=== PATIENT | male | born 1985 | race Caucasian/White ===

== ENCOUNTER 2018-01-11 01:18 | Inpatient (IN) | payer OTHER ==
[~2018-01-11] VITALS: Ht 177.8 cm; Wt 89.1 kg
[~2018-01-11 01:18] MED LIST: BUPR8MIS PO
[2018-01-11] MEDS ORDERED: SODIUM CHLORIDE 0.9% 1000ML 2,000 ML IV STA (01:24)
[2018-01-11 01:45] LABS: BASO % 0.1 %; BASO ABS # 0.01 K/uL (0-0.2); EOS % 0.4 %; EOS ABS # 0.03 K/uL (0-0.5); HEMATOCRIT 40.7 % (42-52); HEMOGLOBIN 14.5 g/dL (14.0-18.0); IG# 0.03 K/uL (0.00-0.02); LYMPH % 27.2 %; LYMPH ABS # 1.98 K/uL (1.2-3.4); MEAN CELL VOLUME 80.1 fL (80-100); MEAN CORPUSCULAR HEMOGLOBIN 28.5 pg (25-34); MEAN CORPUSCULAR HGB CONC 35.6 g/dl (32-36); MEAN PLATELET VOLUME 8.9 fL (7.4-10.4); MONO % 5.1 %; MONO ABS # 0.37 K/uL (0.11-0.59); NEUT % 66.8 %; NEUT ABS # 4.86 K/uL (1.4-6.5); PLATELET COUNT 260 K/uL (130-400); RED CELL DISTRIBUTION WIDTH CV 12.9 % (11.5-14.5); RED CELL DISTRIBUTION WIDTH SD 37.2 fL (36.4-46.3); WHITE BLOOD COUNT 7.28 K/uL (4.8-10.8)
[2018-01-11] MEDS ORDERED: OPTIRAY 320 IV PRN (01:45)
[2018-01-11 01:47] LABS: ISTAT CREATININE 1.2 mg/dl (0.6-1.3); ISTAT IONIZED CALCIUM 1.14 mmol/l (1.12-1.32); ISTAT POTASSIUM 4.2 mEq/L (3.3-5.0)
[2018-01-11 01:54] LABS: PTT PATIENT 29.4 SECONDS (21.0-31.0)
[2018-01-11 02:03] LABS: ALBUMIN 3.7 gm/dl (3.4-5.0); ALT/SGPT 52 U/L (12-78); AST/SGOT 26 U/L (15-37); BLOOD UREA NITROGEN 12 mg/dl (7-18); CALCIUM 9.5 mg/dl (8.5-10.1); CARBON DIOXIDE 27 mmol/L (21-32); CREATININE 1.18 mg/dl (0.60-1.40); GLUCOSE 88 mg/dl (70-99); LIPASE 70 U/L (73-393); POTASSIUM 4.1 mmol/L (3.5-5.1); SODIUM 135 mmol/L (136-145)
[2018-01-11 02:05] LABS: ALKALINE PHOSPHATASE 63 U/L (45-117); CKMB 0.8 ng/ml (0.5-3.6); TOTAL PROTEIN 7.9 gm/dl (6.4-8.2)
[2018-01-11] MEDS ORDERED: SODIUM CHLORIDE 0.9% 1000ML 1,000 ML IV STA (03:52)
--- NOTE | 2018-01-11 04:27 | History and Physical ---
History & Physical Date & Time of Service: Jan 11, 2018 at 04:27 Chief Complaint: Overdose Primary Care Physician: [facility] History of Present Illness Source: patient This is a 32 yo m that is presenting to us under incarceration as he was at home earlier today when his house was searched and in the mean time he had swallowed approx 25 small bags of opiate like substances/ cocaine. He was brought [facility] the [place] [facility] where he freely admitted to doing this and he was brought here for evaluation. No foreign objects noted on the xray however positive urine and after discussing with poison control is was recommended that the patient be observed for a 24 hour period. On exam the patient is sleepy however arousable as he had been up all night. He denies any chest pain/ palpitations or shortness of breath however due to his arousability only a limited ROS was completed. He denies any health history or surgical history. Admits to illicit drug use with heroin and cocaine. Past Medical/Surgical History Drug abuse Family History Heart disease Social History Smoking Status: Current Some Day Smoker Smokeless Tobacco Use: No Alcohol Use: socially Drug Use: cocaine, heroin Marital Status: single Occupational Status: employed Allergies Uncoded Allergies: PENICILLIN (Allergy, Unknown, UNKNOWN- CHILDHOOD, 01/11/18) Home Medications No Active Prescriptions or Reported Meds Review of Systems As above limited ROS Respiratory: No shortness of breath Cardiovascular: No chest pain, No palpitations Physical Exam Vital Signs Date Time Temp Pulse Resp B/P (MAP) Pulse Ox O2 Delivery O2 Flow Rate FiO2 01/11/18 03:01 93 18 127/91 97 01/11/18 02:31 01/11/18 02:30 97 19 140/80 99 01/11/18 02:01 80 20 141/85 98 Room Air 01/11/18 01:33 99 01/11/18 01:25 36.7 100 22 132/94 98 Room Air 01/11/18 01:20 98 Room Air 01/11/18 01:20 98 Room Air General Appearance: no apparent distress Head: normocephalic, atraumatic Eyes: normal inspection ENT: normal ENT inspection Neck: supple Respiratory/Chest: normal breath sounds, no respiratory distress, no accessory muscle use Cardiovascular: regular rate, rhythm, no murmur, normal peripheral pulses Abdomen/GI: normal bowel sounds, non tender, soft Back: normal inspection, no CVA tenderness Extremities/Musculoskelatal: no calf tenderness Neurologic/Psych: normal mood/affect, oriented x 3 Skin: normal color, warm/dry, no rash Lymphatic: no adenopathy Diagnostics Laboratory Results Results Past 24 Hours Test 01/11/18 01:31 01/11/18 01:34 01/11/18 01:35 01/11/18 02:16 Range/Units White Blood Count 7.28 4.8-10.8 K/uL Red Blood Count 5.08 4.7-6.1 M/uL Hemoglobin 14.5 14.0-18.0 g/dL Hematocrit 40.7 42-52 % Mean Corpuscular Volume 80.1 80-100 fL Mean Corpuscular Hemoglobin 28.5 25-34 pg Mean Corpuscular Hemoglobin Concent 35.6 32-36 g/dl Platelet Count 260 130-400 K/uL Mean Platelet Volume 8.9 7.4-10.4 fL Neutrophils (%) (Auto) 66.8 % Lymphocytes (%) (Auto) 27.2 % Monocytes (%) (Auto) 5.1 % Eosinophils (%) (Auto) 0.4 % Basophils (%) (Auto) 0.1 % Neutrophils # (Auto) 4.86 1.4-6.5 K/uL Lymphocytes # (Auto) 1.98 1.2-3.4 K/uL Monocytes # (Auto) 0.37 0.11-0.59 K/uL Eosinophils # (Auto) 0.03 0-0.5 K/uL Basophils # (Auto) 0.01 0-0.2 K/uL RDW Standard Deviation 37.2 36.4-46.3 fL RDW Coefficient of Variation 12.9 11.5-14.5 % Immature Granulocyte % (Auto) 0.4 % Immature Granulocyte # (Auto) 0.03 0.00-0.02 K/uL Prothrombin Time 10.8 9.0-12.0 SECONDS Prothromb Time International Ratio 1.0 0.9-1.1 Activated Partial Thromboplast Time 29.4 21.0-31.0 SECONDS Partial Thromboplastin Ratio 1.1 Sodium Level 135 136-145 mmol/L Potassium Level 4.1 3.5-5.1 mmol/L Chloride Level 102 98-107 mmol/L Carbon Dioxide Level 27 21-32 mmol/L Anion Gap 6.0 17.0 16-25 mmol/L Blood Urea Nitrogen 12 7-18 mg/dl Creatinine 1.18 0.60-1.40 mg/dl Est Creatinine Clear Calc Drug Dose 93.7 ml/min Estimated GFR () 94.7 Estimated GFR (Non- 81.7 BUN/Creatinine Ratio 9.8 10-20 Random Glucose 88 70-99 mg/dl Osmolality 286 280-300 mOsm/kg Calcium Level 9.5 8.5-10.1 mg/dl Magnesium Level 2.0 1.8-2.4 mg/dl Total Bilirubin 0.5 0.2-1 mg/dl Direct Bilirubin 0.2 0-0.2 mg/dl Aspartate Amino Transf (AST/SGOT) 26 15-37 U/L Alanine Aminotransferase (ALT/SGPT) 52 12-78 U/L Alkaline Phosphatase 63 45-117 U/L Total Creatine Kinase 70 39-308 U/L Creatine Kinase MB 0.8 0.5-3.6 ng/ml Creatine Kinase MB Ratio 1.1 0-3.0 Troponin I < 0.015 0-0.045 ng/ml Total Protein 7.9 6.4-8.2 gm/dl Albumin 3.7 3.4-5.0 gm/dl Lipase 70 73-393 U/L Salicylates Level < 1.7 2.8-20 mg/dl Acetaminophen Level < 2 10-30 ug/ml Bedside Troponin I < 0.030 0-0.045 ng/ml Bedside Hemoglobin 13.9 14.0-18.0 g/dl Bedside Hematocrit 41 42-52 % Bedside Sodium 138 135-144 mEq/L Bedside Potassium 4.2 3.3-5.0 mEq/L Bedside Chloride 100 101-112 mEq/L Bedside Total CO2 26 24-31 mEq/l Bedside Blood Urea Nitrogen 12 7-18 mg/dl Bedside Creatinine 1.2 0.6-1.3 mg/dl Bedside Glucose (other) 92 70-99 mg/dl Bedside Ionized Calcium (Amira) 1.14 1.12-1.32 mmol/l Ethyl Alcohol mg/dL < 3.0 0-3 mg/dl Test 01/11/18 02:24 01/11/18 03:07 Range/Units Bedside Lactic Acid Venous 1.01 0.90-1.70 mmol/L Urine Opiates Screen POS NEG Urine Methadone, Qualitative NEG NEG Urine Barbiturates NEG NEG Urine Phencyclidine (PCP) Level NEG NEG Ur Amphetamine/Methamphetamine POS NEG MDMA (Ecstasy) Screen NEG NEG Urine Benzodiazepines Screen NEG NEG Urine Cocaine Metabolite POS NEG Urine Marijuana (THC) NEG NEG Diagnostic Radiology CXR- no acute findigns CT abd- per radiologist; patchy basilar opacity mostly in right lung, moderate stool EKG NSR, HR 91, no ischemic changes Impression Assessment and Plan This is a 32 yo m that is presenting to us with unintentional overdose of multiple illicit substances requiring observation intentional overdose without SI of multiple illicit substances - Tele admission - EKG in am - monitor for S&S of cocaine/ opiate overdose DVT prophylaxis heparin bid FULL CODE Resident Physician Supervision Note: I was present with Dr. Parry during the history and exam. I discussed the case with the resident and agree with the findings and plan as documented in the note. Any exceptions or clarifications are listed here: 32 y/o M Hx polysubstance abuse. Swallowed several bags filled with a variey of synthetic opiates and cocaine while his house was being searched by police. He was brought to the hospital therefore. He is hemodynamically stable, however , poison control have advised on 24 hours of monitoring before he proceeds to the local assisted. OE AAO x 3 S1,2 R CTAB NT, ND No CCE P: IVF and observation prior to discharge - recommended 24 hours of monitoring on telemetry Documented By: German Parker Resuscitation Status full VTE Prophylaxis Will order VTE Prophylaxis: Yes Note Total Time: Critical Care 30 - 74 minutes
[2018-01-11] MEDS ORDERED: ALUMINUM/MAGNESIUM/SIMETH (MAALOX MAX) 30 ML UDC PO PRN (04:30)
[2018-01-11] MEDS ORDERED: MAGNESIUM HYDROXIDE SUSP 30 ML UDC PO PRN (04:30)
[2018-01-11] MEDS ORDERED: ONDANSETRON INJ 2 MG/ML 2 ML VIAL IV PRN (04:30)
--- NOTE | 2018-01-11 04:53 | EMERGENCY ROOM VISIT NOTE ---
History First contact with patient: 01:23 Chief Complaint: OVERDOSE (INTENTIONAL) Stated Complaint: OVERDOSE History of Present Illness The patient is a 32 year old male who presents to the Emergency Room with complaints of swelling 25 bags of opiate like substance and cocaine at noon today when the house that he was at was being raided by the police. He was then arrested and while being processed he informed the correction officers that he had swallowed possibly 25 bags of opiate like and cocaine like substance at noon today. Patient states he did this as he did not want to get charged with illegal substance. Patient states he occasionally does opiate like drugs called MD 24. He states this is similar to fentanyl. He buys this off the street. He occasionally does cocaine. Patient denies IV drug abuse, heroin abuse, recent alcohol intake. Patient complains of abdominal cramping ranging in severity currently 5 out of 10 throughout his abdomen. Nothing makes it better or worse. Patient states he feels anxious. Patient denies chest pain, dyspnea, racing heart, diaphoresis, fever, chills, nausea, vomiting , diarrhea, back pain, urinary symptoms. Patient denies suicidal or homicidal ideations. Review of Systems An 10 system review of systems was completed with positives and pertinent negatives listed in the HPI. Past Medical/Surgical History Medical Problems: (1) Intentional non-suicidal overdose involving multiple drugs Drug abuse Family History Heart disease Social History Smoking Status: Current Some Day Smoker Alcohol Use: occasionally Drug Use: cocaine Marital Status: single Housing Status: lives with significant other Current/Historical Medications No Active Prescriptions or Reported Meds Physical Exam Vital Signs Date Time Temp Pulse Resp B/P (MAP) Pulse Ox O2 Delivery O2 Flow Rate FiO2 01/11/18 03:01 93 18 127/91 97 01/11/18 02:31 01/11/18 02:30 97 19 140/80 99 01/11/18 02:01 80 20 141/85 98 Room Air 01/11/18 01:33 99 01/11/18 01:25 36.7 100 22 132/94 98 Room Air 01/11/18 01:20 98 Room Air 01/11/18 01:20 98 Room Air Physical Exam VITALS: Vitals are noted on the nurse's note and reviewed by myself. Vital signs mildly tachycardic. GENERAL: Anxious appearing male in shackles, in no acute distress, nondiaphoretic, well-developed well-nourished. SKIN: The skin was without rashes, erythema, edema, or bruising. There is no tenting of the skin. Capillary reflex less than 2 seconds. HEAD: Normocephalic atraumatic. EARS: External auditory canals clear, tympanic membranes pearly walton without erythema or effusion bilaterally. EYES: Pupils equal round and reactive to light and accommodation. Conjunctivae without injection, sclerae without icterus. Extraocular movements intact. NOSE: Patent, turbinates without inflammation or discharge. No sinus tenderness. MOUTH: Mucous membranes moist. Pharynx without erythema or exudate. Uvula midline. Airway patent. Tongue does not deviate. NECK: Supple without nuchal rigidity. No lymphadenopathy. No thyromegaly. Cervical spine is nontender. No JVD. HEART: Regular rate and rhythm without murmurs gallops or rubs. LUNGS: Clear to auscultation bilaterally without wheezes, rales or rhonchi. No retractions or accessory muscle use. ABDOMEN: Positive bowel sounds x 4. Normal tympanic percussion. Soft, nontender, without masses or organomegaly. Zepeda sign negative. No guarding or rebound tenderness. No CVA tenderness MUSCULOSKELETAL: No muscle atrophy, erythema, or edema noted. NEURO: Patient was alert and oriented to person place and time. Normal sensation to light and sharp touch. No focal neurological deficits. Medical Decision & Procedures Laboratory Results 01/11/18 01:31 Red Blood Count 5.08, Mean Corpuscular Volume 80.1, Mean Corpuscular Hemoglobin 28.5, Mean Corpuscular Hemoglobin Concent 35.6, Mean Platelet Volume 8.9, Neutrophils (%) (Auto) 66.8, Lymphocytes (%) (Auto) 27.2, Monocytes (%) (Auto) 5.1, Eosinophils (%) (Auto) 0.4, Basophils (%) (Auto) 0.1, Neutrophils # (Auto) 4.86, Lymphocytes # (Auto) 1.98, Monocytes # (Auto) 0.37, Eosinophils # (Auto) 0.03, Basophils # (Auto) 0.01 01/11/18 01:31 Test 01/11/18 01:31 01/11/18 01:34 01/11/18 01:35 01/11/18 02:16 White Blood Count 7.28 K/uL (4.8-10.8) Red Blood Count 5.08 M/uL (4.7-6.1) Hemoglobin 14.5 g/dL (14.0-18.0) Hematocrit 40.7 % (42-52) Mean Corpuscular Volume 80.1 fL (80-100) Mean Corpuscular Hemoglobin 28.5 pg (25-34) Mean Corpuscular Hemoglobin Concent 35.6 g/dl (32-36) Platelet Count 260 K/uL (130-400) Mean Platelet Volume 8.9 fL (7.4-10.4) Neutrophils (%) (Auto) 66.8 % Lymphocytes (%) (Auto) 27.2 % Monocytes (%) (Auto) 5.1 % Eosinophils (%) (Auto) 0.4 % Basophils (%) (Auto) 0.1 % Neutrophils # (Auto) 4.86 K/uL (1.4-6.5) Lymphocytes # (Auto) 1.98 K/uL (1.2-3.4) Monocytes # (Auto) 0.37 K/uL (0.11-0.59) Eosinophils # (Auto) 0.03 K/uL (0-0.5) Basophils # (Auto) 0.01 K/uL (0-0.2) RDW Standard Deviation 37.2 fL (36.4-46.3) RDW Coefficient of Variation 12.9 % (11.5-14.5) Immature Granulocyte % (Auto) 0.4 % Immature Granulocyte # (Auto) 0.03 K/uL (0.00-0.02) Prothrombin Time 10.8 SECONDS (9.0-12.0) Prothromb Time International Ratio 1.0 (0.9-1.1) Activated Partial Thromboplast Time 29.4 SECONDS (21.0-31.0) Partial Thromboplastin Ratio 1.1 Est Creatinine Clear Calc Drug Dose 93.7 ml/min Estimated GFR () 94.7 Estimated GFR (Non- 81.7 BUN/Creatinine Ratio 9.8 (10-20) Osmolality 286 mOsm/kg (280-300) Calcium Level 9.5 mg/dl (8.5-10.1) Magnesium Level 2.0 mg/dl (1.8-2.4) Total Bilirubin 0.5 mg/dl (0.2-1) Direct Bilirubin 0.2 mg/dl (0-0.2) Aspartate Amino Transf (AST/SGOT) 26 U/L (15-37) Alanine Aminotransferase (ALT/SGPT) 52 U/L (12-78) Alkaline Phosphatase 63 U/L (45-117) Total Creatine Kinase 70 U/L (39-308) Creatine Kinase MB 0.8 ng/ml (0.5-3.6) Creatine Kinase MB Ratio 1.1 (0-3.0) Troponin I < 0.015 ng/ml (0-0.045) Total Protein 7.9 gm/dl (6.4-8.2) Albumin 3.7 gm/dl (3.4-5.0) Lipase 70 U/L (73-393) Salicylates Level < 1.7 mg/dl (2.8-20) Acetaminophen Level < 2 ug/ml (10-30) Bedside Troponin I < 0.030 ng/ml (0-0.045) Bedside Hemoglobin 13.9 g/dl (14.0-18.0) Bedside Hematocrit 41 % (42-52) Bedside Sodium 138 mEq/L (135-144) Bedside Potassium 4.2 mEq/L (3.3-5.0) Bedside Chloride 100 mEq/L (101-112) Bedside Total CO2 26 mEq/l (24-31) Anion Gap 17.0 mmol/L (16-25) Bedside Blood Urea Nitrogen 12 mg/dl (7-18) Bedside Creatinine 1.2 mg/dl (0.6-1.3) Bedside Glucose (other) 92 mg/dl (70-99) Bedside Ionized Calcium (Amira) 1.14 mmol/l (1.12-1.32) Ethyl Alcohol mg/dL < 3.0 mg/dl (0-3) Test 01/11/18 02:24 01/11/18 03:07 Bedside Lactic Acid Venous 1.01 mmol/L (0.90-1.70) Urine Opiates Screen POS (NEG) Urine Methadone, Qualitative NEG (NEG) Urine Barbiturates NEG (NEG) Urine Phencyclidine (PCP) Level NEG (NEG) Ur Amphetamine/Methamphetamine POS (NEG) MDMA (Ecstasy) Screen NEG (NEG) Urine Benzodiazepines Screen NEG (NEG) Urine Cocaine Metabolite POS (NEG) Urine Marijuana (THC) NEG (NEG) Medications Administered Medications (Trade) Dose Ordered Sig/Tanika Route Start Time Stop Time Status Last Admin Dose Admin Sodium Chloride 2,000 ml @ 999 mls/hr Q2H1M STAT IV 01/11/18 01:24 01/11/18 03:24 DC 01/11/18 01:30 999 MLS/HR ED Course Prior records/ancillary studies reviewed. Triage Nursing notes reviewed. Additional history obtained from correction officers The patient's history was concerning for altered mental status and probable overdose. Differential diagnosis: Etiologies such as toxicologic, infection, hypoglycemia, electrolyte abnormalities, cardiac sources, intracerebral event, neurologic, as well as others were entertained. Physical examination: The patient had a normal sensorium. No trauma noted. ER treatment provided: IV NSS 2 L bolus On reassessment the patient was stable and improving. Diagnostic interpretation by me: The electrocardiogram was negative for pathologic change. There was no QRS widening or interval prolongation. Normal sinus, normal intervals, no acute ST- T wave changes, rate 91. Impression normal sinus rhythm interpreted by myself The labs revealed neg Tylenol, salicylate and alcohol levels Creatinine 1.2 and patient was sent emergently down to CAT scan Negative lactic acid. Positive UDS for cocaine, opiates and amphetamines Imaging studies: CT ABDOMEN & PELVIS: Patchy basilar densities most prominent in the right middle lobe. Correlate clinically for inflammatory/infectious process. Stool-filled colon. Normal caliber appendix. No evidence of bowel obstruction. Small fat-containing umbilical hernia. Mild splenomegaly. Radiologist: Angelika Tierney M.D. Chest x-ray with no acute consolidation, pneumothorax or free of my interpretation I spoke to the correction officers who state there is only a nurse at the long term. They state they know the patient as he is a frequent visitor to them. Consultation: A consultation was placed with Poison Control. The recommendations were for observation for 24 hours. A consultation was placed with Dr Parker, hospitalist. The case was discussed and diagnostics were reviewed. The patient was evaluated in the ER for further treatment. This appears to be consistent with an isolated overdose. Patient had no signs or symptoms of pneumonia. I believe this must be an inflammatory process on the CT that was read by radiology. CT was negative for obvious foreign body ingestion. Patient's vital signs remained stable. It is now 15 hours since the possible ingestion of the illegal drugs. The recommendation is to observe him for 24 hours. Medicine was consulted. By the evaluation outlined above emergent etiologies such as infection, hypoglycemia, electrolyte abnormalities, cardiac sources, intracerebral event, neurologic,as well as others were deemed relatively unlikely. The pt informed about the findings as listed above. All questions were answered and pleased with the treatment. Case reviewed with my attending The chart was completed utilizing [employer] Speech voice recognition software. Grammatical errors, random word insertions, pronoun errors, and incomplete sentences are an occassional consequence of this system due to software limitations, ambient noise, and hardware issues. Any formal questions or concerns about the content, text, or information contained within the body of this dictation should be directly addressed to the physician social human services assistants for clarification. Medical Decision As above Medication Reconcilliation Current Medication List: was personally reviewed by me Blood Pressure Screening Patient's blood pressure: Normal blood pressure Impression Primary Impression: Purposeful non-suicidal drug ingestion Departure Information Dispostion Being Evaluated By Hospitalist Condition FAIR Prescriptions No Active Prescriptions or Reported Meds Referrals No Doctor, Assigned (PCP) Patient Instructions My [facility] Problem Qualifiers Primary Impression: Purposeful non-suicidal drug ingestion Encounter type: initial encounter Qualified Codes: T50.902A - Poisoning by unspecified drugs, medicaments and biological substances, intentional self-harm , initial encounter
[2018-01-11] MEDS ORDERED: IV FLUIDS COMPLETED PRN (05:15)
[2018-01-11 05:30] VITALS: BP 135/78; PULSE 97; TEMP 36.8; O2SAT 98; Ht 177.8 cm; Wt 89.1 kg
--- NOTE | 2018-01-11 06:44 | DIAGNOSTIC IMAGING REPORT ---
CHEST ONE VIEW PORTABLE CLINICAL HISTORY: 32 years-old Male presenting with overdose. TECHNIQUE: Portable upright AP view of the chest was obtained. COMPARISON: None. FINDINGS: Cardiomediastinal silhouette normal. Lungs and pleural spaces clear. Osseous structures normal. Upper abdomen normal. IMPRESSION: 1. No acute cardiopulmonary disease. Electronically signed by: Kaushik Steven M.D. 01/11/2018 6:43 AM Dictated Date/Time: 01/11/2018 6:42 AM
--- NOTE | 2018-01-11 06:54 | DIAGNOSTIC IMAGING REPORT ---
ABD/PELVIS IV CONTRAST ONLY CLINICAL HISTORY: 32 years-old Male presenting with swallowed 25 bags of opiates?. TECHNIQUE: Multidetector CT of the abdomen and pelvis was performed after the administration of intravenous contrast. IV contrast: 94 mL of Optiray 320. A dose lowering technique was used consistent with the principles of ALARA (as low as reasonably achievable). COMPARISON: None. CT DOSE (mGy.cm): The estimated cumulative dose is 697.53 mGy.cm. FINDINGS: Image quality is degraded by positioning of the arms at the sides. Pharmacy Informaticist topogram: Unremarkable. Lung bases: Focal nodular opacities in the medial segments of the right middle lobe. Minimal dependent atelectasis. No gross evidence of bronchiectasis, although evaluation is limited to the lung bases. Normal heart size. No pericardial or pleural effusion. Liver: Normal morphology. No liver lesion. Patent hepatic vasculature. Biliary: No intrahepatic or extrahepatic biliary ductal dilatation. Normal gallbladder. Pancreas: Normal. Spleen: Normal. Adrenal glands: Normal. Kidneys and ureters: Normal. No hydronephrosis. Bladder: Normal. Pelvic organs: Prostate and seminal vesicles normal. Bowel: Normal appendix. No bowel obstruction. Peritoneal cavity: No free fluid or intraperitoneal gas. Lymph nodes: No enlarged lymph nodes in the abdomen or pelvis. Vasculature: Aorta and IVC patent and normal in caliber. Abdominal wall: Normal. Musculoskeletal: Normal. IMPRESSION: 1. No acute intra-abdominal pathology. 2. Nodular opacities in the right middle lobe are most concerning for an infectious etiology, atypical infections not excluded including mycobacterium avium complex. Further evaluation with chest CT to be considered for more complete characterization. The report will be called/faxed according to standard departmental protocol. Electronically signed by: Kaushik Steven M.D. 01/11/2018 6:53 AM Dictated Date/Time: 01/11/2018 6:47 AM
[2018-01-11 07:35] VITALS: BP 133/79; PULSE 82; TEMP 36.7; O2SAT 97
[2018-01-11] MEDS: POLYETHYLENE (MIRALAX) 17 GM PACK PO SCH (11:52)
[2018-01-11] MEDS: HEPARIN SOD 5000 UNIT/0.5 ML CARP SQ SCH ×2 (11:57→20:54)
[2018-01-11 11:59] VITALS: BP 133/82; PULSE 84; TEMP 36.8; O2SAT 99
[2018-01-11 15:55] VITALS: BP 125/82; PULSE 78; TEMP 37.2; O2SAT 94
[2018-01-11 20:20] VITALS: BP 121/80; PULSE 79; TEMP 37.4; O2SAT 98
[2018-01-11] MEDS ORDERED: NICOTINE 21 MG/24 HR TDSY TD ONE (22:00)
[2018-01-11] MEDS ORDERED: AZITHROMYCIN IV 500 MG in DEXTROSE 5% 250ML 250 ML IV ONE (22:00)
[2018-01-12 00:10] VITALS: BP 124/79; PULSE 86; TEMP 36.9; O2SAT 95
[2018-01-12 04:18] VITALS: BP 118/73; PULSE 84; TEMP 36.8
[2018-01-12] MEDS: POLYETHYLENE (MIRALAX) 17 GM PACK PO SCH (07:58)
[2018-01-12 08:00] VITALS: BP 120/72; PULSE 94; TEMP 36.4
[2018-01-12] MEDS: NICOTINE 21 MG/24 HR TDSY TD SCH (08:00)
[2018-01-12] MEDS: HEPARIN SOD 5000 UNIT/0.5 ML CARP SQ SCH ×2 (08:02→22:24)
--- NOTE | 2018-01-12 09:28 | DIAGNOSTIC IMAGING REPORT ---
CT SCAN OF THE CHEST WITHOUT IV CONTRAST CLINICAL HISTORY: Follow-up right middle lobe consolidation. COMPARISON STUDY: Abdominal CT dated 01/11/2018. Chest x-ray dated 01/11/2018. TECHNIQUE: CT scan of the thorax was performed from the thoracic inlet to the upper abdomen. Images are reviewed in the axial, sagittal, and coronal planes. IV contrast was not administered for this examination as per the referring clinician. A dose lowering technique was utilized adhering to the principles of ALARA. CT DOSE: 338.09 mGy.cm FINDINGS: Thyroid: Imaged portions of the thyroid gland are normal in size and attenuation. Thoracic aorta: The thoracic aorta is normal in caliber and demonstrates standard 3-vessel arch anatomy. Heart: The heart is normal in size and without pericardial effusion. Lungs and pleural spaces: There is patchy airspace consolidation with foci of tree-in-bud nodularity identified in the right middle lobe. The lungs are otherwise clear. No pleural effusion or pneumothorax is seen. Layering secretions are noted in the trachea. Mediastinum: There is no mediastinal lymphadenopathy. Cindy: Not well assessed without IV contrast. Axillae: There is no axillary lymphadenopathy. Upper abdomen: There is a tiny hiatal hernia. The spleen is mildly enlarged measuring 13.8 cm in length. Partially visualized upper abdominal viscera is otherwise within normal limits. Skeletal structures: No lytic or blastic bony lesions are seen. IMPRESSION: 1. Patchy airspace consolidation with foci of tree-in-bud nodularity are again seen in the right middle lobe and unchanged from yesterday. This likely represents an infectious/inflammatory pneumonitis. Clinical correlation will be required. 2. The lungs are otherwise clear. No pleural effusion is seen. 3. There is no mediastinal lymphadenopathy. 4. Mild splenomegaly. Electronically signed by: Marcos Marte M.D. 01/12/2018 9:27 AM Dictated Date/Time: 01/12/2018 9:23 AM
--- NOTE | 2018-01-12 12:01 | Progress Note ---
Subjective Date of Service: Jan 12, 2018. Subjective Pt evaluation today including: conversation w/ patient Patient states that he feels very weak. He has constant chest pain and is feels pressure like in nature. This is accompanied by photophobia. Patient states that he has headaches which are migraines. They occur once a week. But he is having them now. He states that he cannot eat right now and that he is extremely weak. As per nurse, he has not taken his miralax and had not coughed the night before. Problem List Medical Problems: (1) Purposeful non-suicidal drug ingestion Status: Acute Review of Systems Constitutional: No fever, No chills Eyes: No worsening of vision ENT: No hearing loss Respiratory: No cough, No sputum Cardiac: + chest pain, No orthopnea Male : No dysuria Neurologic: No memory loss Psychiatric: No depression symptoms Heme: No abnormal bleeding/bruising Endo: + fatigue Skin: No rash All Other Systems: Reviewed and Negative Medications Current Inpatient Medications Medications (Trade) Dose Ordered Sig/Tanika Route Start Time Stop Time Status Last Admin Dose Admin Ioversol (Optiray 320) 125 ml UD PRN IV 01/11/18 01:45 01/15/18 01:44 Heparin Sodium (Porcine) (Heparin Sq 5000 Unit/0.5ml) 5,000 unit Q12 SQ 01/11/18 09:00 02/10/18 08:59 01/12/18 08:02 5,000 UNIT Acetaminophen (Tylenol Tab) 650 mg Q4H PRN PO 01/11/18 04:30 02/10/18 04:29 Al Hydrox/Mg Hydrox/Simethicone (Maalox Max Susp) 15 ml Q4H PRN PO 01/11/18 04:30 02/10/18 04:29 Magnesium Hydroxide (Milk Of Magnesia Susp) 30 ml Q12H PRN PO 01/11/18 04:30 02/10/18 04:29 Ondansetron HCl (Zofran Inj) 4 mg Q6H PRN IV 01/11/18 04:30 02/10/18 04:29 Polyethylene (Miralax Powder Packet) 17 gm DAILY PO 01/11/18 09:00 02/10/18 08:59 01/12/18 07:58 17 GM Miscellaneous (Iv Fluids Completed) 1 ea PRN PRN N/A 01/11/18 05:15 01/11/19 05:14 Nicotine (Nicoderm Cq 21MG Patch) 1 patch QAM TD 01/12/18 09:00 02/11/18 08:59 01/12/18 08:00 1 PATCH Miscellaneous (Remove Nicoderm Patch) 1 ea HS N/A 01/12/18 21:00 02/11/18 20:59 01/12/18 22:21 1 EA Objective Vital Signs Date Time Temp Pulse Resp B/P (MAP) Pulse Ox O2 Delivery O2 Flow Rate FiO2 01/12/18 08:00 36.4 94 16 120/72 (88) 01/12/18 08:00 Room Air 01/12/18 04:18 36.8 84 16 118/73 (88) 01/12/18 04:00 Room Air 01/12/18 00:10 36.9 86 20 124/79 (94) 95 Room Air 01/12/18 00:00 Room Air 01/11/18 20:20 37.4 79 18 121/80 (94) 98 Room Air 01/11/18 20:00 Room Air 01/11/18 16:00 Room Air 01/11/18 15:55 37.2 78 16 125/82 (96) 94 Room Air 01/11/18 12:00 Room Air 01/11/18 11:59 36.8 84 20 133/82 (99) 99 Room Air Physical Exam General Appearance: WD/WN, no apparent distress Eyes: normal inspection ENT: normal ENT inspection Neck: supple, no adenopathy Respiratory/Chest: chest non-tender, lungs clear, normal breath sounds Cardiovascular: regular rate, rhythm Abdomen: normal bowel sounds, non tender, soft Extremities: normal range of motion Neurologic/Psychiatric: alert, oriented x 3 Skin: normal color Lymphatic: no adenopathy Assessment and Plan This is a 32 yo m that is presenting to us with unintentional overdose of multiple illicit substances requiring observation intentional overdose without SI of multiple illicit substances - Tele admission - EKG in am - monitor for S&S of cocaine/ opiate overdose Tree in [place]d [place] in [place] will obtain AFB x3. Patient however received azithromycin by night resident. May alter results of culture. may consider pulmonary consult tomorrow for bronch. Malingering Patient is likely looking to avoid fdc time by extending his hospital stay. Trop and EKG negative. Obtained patient to take his miralax and give a sputum sample. Patient states he is weak, but appears to be a strong well nourished male will monitor DVT prophylaxis heparin bid FULL CODE Will downgrade to Med surg
[2018-01-12 12:05] VITALS: BP 123/77; PULSE 96; TEMP 37.3; O2SAT 100
[2018-01-12 15:56] VITALS: BP 113/78; PULSE 85; TEMP 37.2; O2SAT 99
[2018-01-12 17:02] VITALS: BP 113/78; PULSE 85; TEMP 37.2; O2SAT 99
[2018-01-13 00:33] VITALS: BP 127/80; PULSE 78; TEMP 36.8; O2SAT 100
[2018-01-13 07:38] VITALS: BP 132/80; PULSE 76; TEMP 36.3; O2SAT 99
[2018-01-13 08:00] VITALS: O2SAT 100
[2018-01-13] MEDS: POLYETHYLENE (MIRALAX) 17 GM PACK PO SCH (08:00)
--- NOTE | 2018-01-13 09:24 | Progress Note ---
Subjective Date of Service: Jan 13, 2018. Subjective Pt evaluation today including: conversation w/ patient Pt states he feels hungry at times, but starts to eat and his appetite is gone. Nursing reports he is eating 1/2 of his tray. Requesting protein supplements. No further chest pain. States he has had several bowel movements and passed the ingested substances. Also tells me that the drugs he swallowed were in sheepskin baggies that are to dissolve in 30 hours. Denies other drug use other than what he ingested to hide from police search. States he was in [facility] [place] 3 months ago and some time in [place] Sep/Oct. Had HIV testing 11/2016 that was neg. Two partners since that time, one of which is he current girlfriend. He did have unprotected intercourse with her and she is currently . Pt denies fever, SOB, abd pain, n/v/c/d, LE pain or swelling. Problem List Medical Problems: (1) Purposeful non-suicidal drug ingestion Status: Acute Review of Systems All Other Systems: Reviewed and Negative Objective Vital Signs Date Time Temp Pulse Resp B/P (MAP) Pulse Ox O2 Delivery O2 Flow Rate FiO2 01/13/18 07:38 36.3 76 20 132/80 (97) 99 Room Air 01/13/18 00:33 36.8 78 18 127/80 (96) 100 Room Air 01/13/18 00:00 Room Air 01/12/18 20:00 Room Air 01/12/18 17:02 37.2 85 18 99 01/12/18 16:00 Room Air 01/12/18 15:56 37.2 85 18 113/78 (90) 99 Room Air 01/12/18 12:05 37.3 96 20 123/77 (92) 100 Room Air 01/12/18 12:00 Room Air Physical Exam General Appearance: WD/WN, no apparent distress Eyes: normal inspection, sclerae normal Respiratory/Chest: normal breath sounds, no respiratory distress Cardiovascular: regular rate, rhythm, no edema Abdomen: non tender, soft Extremities: non-tender, no pedal edema Neurologic/Psychiatric: alert, normal mood/affect Skin: normal color, warm/dry Laboratory Results Last 24 Hours Test 01/12/18 12:53 Troponin I < 0.015 ng/ml Assessment and Plan This is a 32 yo m that is presenting to us with intentional overdose of multiple illicit substances requiring observation intentional overdose without SI of multiple illicit substances - Tele admission was neg and stable for transfer to medical floor Was having chest pain, but now resolved with VSS Trop neg x3 Tree in [place]d consolidation in [place] will obtain AFB x3. Patient however received azithromycin by night resident. May alter results of culture. may consider pulmonary consult for bronch Malingering Patient is likely looking to avoid care home time by extending his hospital stay. Trop and EKG negative. Obtained patient to take his miralax and give a sputum sample. Patient states he is weak, but appears to be a strong well nourished male will monitor DVT prophylaxis heparin bid FULL CODE
[2018-01-13] MEDS: NICOTINE 21 MG/24 HR TDSY TD SCH (10:10)
[2018-01-13] MEDS: HEPARIN SOD 5000 UNIT/0.5 ML CARP SQ SCH ×2 (10:11→23:52)
[2018-01-13 10:17] VITALS: BP 99/66; PULSE 86; TEMP 36.7; O2SAT 100
[2018-01-13 16:00] VITALS: O2SAT 100
[2018-01-13 22:55] VITALS: BP 117/75; PULSE 98; TEMP 36.7; O2SAT 98
[2018-01-13] MEDS: BOOST VANILLA PO SCH (23:58)
[2018-01-14 07:23] VITALS: BP 128/82; PULSE 87; TEMP 36.7; O2SAT 100
[2018-01-14] MEDS: HEPARIN SOD 5000 UNIT/0.5 ML CARP SQ SCH ×2 (10:00→21:00)
[2018-01-14] MEDS: POLYETHYLENE (MIRALAX) 17 GM PACK PO SCH (10:00)
[2018-01-14] MEDS: NICOTINE 21 MG/24 HR TDSY TD SCH (10:01)
[2018-01-14] MEDS: BOOST VANILLA PO SCH ×3 (10:07→19:50)
[2018-01-14] MEDS: ACETAMINOPHEN 325 MG TAB PO PRN ×2 (12:55→16:57)
[2018-01-14 14:59] VITALS: BP 113/69; PULSE 87; TEMP 36.8; O2SAT 100
[2018-01-14 16:00] VITALS: O2SAT 100
--- NOTE | 2018-01-14 17:07 | Progress Note ---
Subjective Date of Service: Jan 14, 2018. Subjective Pt evaluation today including: conversation w/ patient, conversation w/ homemaking rehabilitation consultant Pt states he feels very weak and still without appetite. He has been trying to drink the Boost supplements. Pt denies fever, SOB, chest pain, abd pain, n/v/c/d , LE pain or swelling. Problem List Medical Problems: (1) Purposeful non-suicidal drug ingestion Status: Acute Review of Systems All Other Systems: Reviewed and Negative Objective Vital Signs Date Time Temp Pulse Resp B/P (MAP) Pulse Ox O2 Delivery O2 Flow Rate FiO2 01/14/18 16:00 100 Room Air 01/14/18 14:59 36.8 87 16 113/69 (84) 100 Room Air 01/14/18 10:00 Room Air 01/14/18 07:23 36.7 87 16 128/82 (97) 100 Room Air 01/14/18 00:00 Room Air 01/13/18 22:55 36.7 98 20 117/75 (89) 98 Room Air 01/13/18 20:00 Room Air Physical Exam Comments: General Appearance: WD/WN, no apparent distress Eyes: normal inspection, sclerae normal Respiratory/Chest: normal breath sounds, no respiratory distress Cardiovascular: regular rate, rhythm, no edema Abdomen: non tender, soft Extremities: non-tender, no pedal edema Neurologic/Psychiatric: alert, normal mood/affect Skin: normal color, warm/dry Assessment and Plan This is a 32 yo m that is presenting to us with intentional overdose of multiple illicit substances requiring observation intentional overdose without SI of multiple illicit substances - Tele admission was neg and stable for transfer to medical floor Was having chest pain, but now resolved with VSS Trop neg x3 Tree in [place]d consolidation in [place] will obtain AFB x3. Patient however received azithromycin by night resident. May alter results of culture. Discussed with Dr. Kang and imaging was reviewed. Does not feel pt needs any acute tx but will see in office next week for f/u PPD read on 01/14 (placed at [facility] on 01/11) and is neg Initial AFB smear is neg, cx will take 45 days to result Total of 3 sputum cx sent Weakness and appetite issues are likely related to substantial ingestion of narcotics No s/sx of infection, afebrile with VSS CBC pending, but WBC WNL on admission Malingering Patient is likely looking to avoid senior care time by extending his hospital stay. Trop and EKG negative. Obtained patient to take his miralax and give a sputum sample. Patient states he is weak, but appears to be a strong well nourished male will monitor DVT prophylaxis heparin bid FULL CODE Awaiting call back from [facility] to discuss transport back to their facility
[2018-01-14 17:40] LABS: HEMATOCRIT 43.5 % (42-52); HEMOGLOBIN 15.7 g/dL (14.0-18.0); MEAN CORPUSCULAR HEMOGLOBIN 28.9 pg (25-34); MEAN CORPUSCULAR HGB CONC 36.1 g/dl (32-36); MEAN PLATELET VOLUME 9.2 fL (7.4-10.4); PLATELET COUNT 306 K/uL (130-400); RED CELL DISTRIBUTION WIDTH CV 13.2 % (11.5-14.5); RED CELL DISTRIBUTION WIDTH SD 37.8 fL (36.4-46.3); WHITE BLOOD COUNT 10.56 K/uL (4.8-10.8)
[2018-01-14 19:46] VITALS: BP 132/80; PULSE 92; TEMP 36.9; O2SAT 100
[2018-01-14 22:56] VITALS: BP 112/75; PULSE 81; TEMP 36.8; O2SAT 97
[2018-01-15] MEDS ORDERED: SODIUM CHLORIDE 0.9% 1000ML 1,000 ML IV ONE (00:30)
[2018-01-15 07:38] VITALS: BP 118/69; PULSE 87; TEMP 36.7; O2SAT 99
[2018-01-15] MEDS: POLYETHYLENE (MIRALAX) 17 GM PACK PO SCH (08:00)
[2018-01-15] MEDS: HEPARIN SOD 5000 UNIT/0.5 ML CARP SQ SCH (09:00)
[2018-01-15] MEDS: BOOST VANILLA PO SCH (09:26)
[2018-01-15] MEDS: NICOTINE 21 MG/24 HR TDSY TD SCH (09:26)
--- NOTE | 2018-01-15 10:07 | Discharge Instructions ---
Discharge Instructions Date of Service Jan 15, 2018. Admission Reason for Admission: Intentional Nonsuicidal Overdose Involving Multipl Discharge Discharge Diagnosis / Problem: Intentional Nonsuicidal Overdose Involving Multiple Narcotics Discharge Goals Goal(s): Decrease discomfort, Improve function, Increase independence Activity Recommendations Activity Limitations: resume your previous activity . Instructions / Follow-Up Instructions / Follow-Up Pulmonology with Dr. Kang in 1 week. Current Hospital Diet Patient's current hospital diet: Regular Diet Discharge Diet Recommended Diet: Regular Diet Pending Studies Studies pending at discharge: yes List of pending studies: Mycobacterial cultures x3 Medical Emergencies . Who to Call and When: Medical Emergencies: If at any time you feel your situation is an emergency, please call 911 immediately. . Non-Emergent Contact Non-Emergency issues call your: Primary Care Provider . . "Provider Documentation" section prepared by Nathaly Mcleod. .
--- NOTE | 2018-01-15 10:18 | Discharge Summary ---
Discharge Summary Date of Service Jan 15, 2018. Discharge Summary Admission Date: Jan 11, 2018 at 23:35 Discharge Date: Jan 15, 2018 Discharge Disposition: Home Principal Diagnosis: Intentional but non-suicidal overdose with multiple narcotic substances Problems/Secondary Diagnoses: Tobacco use Medication Reconciliation Medication Profile: No Active Prescriptions or Reported Meds Discharge Exam Pt continues to report feeling weak. He requested a fluid bolus overnight from the resident and states he felt better after that. States his PO intake is still diminished. Per nursing, CO have noted that pt is fine with them but his demeanor changes once hospital staff enters the room. Pt denies fever, SOB, chest pain, abd pain, n/v/c/d, LE pain or swelling. Physical Exam: General Appearance: WD/WN, no apparent distress Eyes: normal inspection, sclerae normal Respiratory/Chest: normal breath sounds, no respiratory distress Cardiovascular: regular rate, rhythm, no edema Abdomen / GI: non tender, soft Extremities: no calf tenderness, no pedal edema Neurologic/Psychiatric: alert, normal mood/affect, oriented x 3 Skin: normal color, warm/dry Hospital Course This is a 32 yo m that is presenting to us with intentional overdose of multiple illicit substances requiring observation intentional overdose without SI of multiple illicit substances - Tele admission was neg and stable for transfer to medical floor Was having chest pain initially, but now resolved with VSS Trop neg x3 and no EKG or tele strip findings Tree in budd consolidation in [place] will obtain AFB x3. Pt did receive a single dose of azithromycin on admission, but no abx since May alter results of culture. Discussed with Dr. Kang and imaging was reviewed. Does not feel pt needs any acute tx but will see in office next week for f/u PPD read on 01/14 (placed at [facility] on 01/11) and is neg AFB smear neg x3 with mycobacterial cx pending. These will take 45 days to result per micro. Also per micro, if smear is neg, it is unlikely for the cx to result as positive Weakness and appetite issues are likely related to substantial ingestion of narcotics No s/sx of infection, afebrile with VSS WBC on admission and repeated prior to d/c are WNL Pt notes time in [facility] and [place], however he has had no fevers, hypoTN, tachycardia, or O2 sat issues. Possibility of malingering to avoid transportation to [place] [facility]. Flu swab neg on 01/15 Case discussed with Yarelis RN on 01/14 and Dianna RN on 01/15 at . Pt for transport back to facility later today. Total Time Spent: Greater than 30 minutes This includes examination of the patient, discharge planning, medication reconciliation, and communication with other providers. Discharge Instructions Please refer to the electronic Patient Visit Report (Discharge Instructions) for additional information. Follow-Up Pulmonology with Dr. Kang in 1 week. Additional Copies To [facility]
[2018-01-15 10:47] LABS: INFLUENZA B ANTIGEN Neg for Influ B (NEG)
[2018-01-15 11:23] VITALS: BP 118/69; PULSE 87; TEMP 36.7; O2SAT 99
== END 2018-01-15 12:36 | DRG 918 ==
LOC: EDBD 01:18 → C.EDB 01:24 → C.2T 04:27 → ENRESERV 04:38 → OBSVTOIN 23:35 → ENRESERV 01-12 16:22 → CANRESERV 01-12 16:22 → ENRESERV 01-12 16:57 → C.4E 01-12 17:20
PROVIDERS: ADMIT Internal Medicine; ATTEND Family Medicine
DX: T40.5X2A Poisoning by cocaine, intentional self-harm, initial encounter (principal); T40.1X2A Poisoning by heroin, intentional self-harm, initial encounter; R07.9 Chest pain, unspecified; Z76.5 Malingerer [conscious simulation]; F17.200 Nicotine dependence, unspecified, uncomplicated; Z88.0 Allergy status to penicillin; Z82.49 Family history of ischemic heart disease and other diseases of the circulatory system